=== PATIENT | male | born 1950 | race Caucasian/White ===

== ENCOUNTER 2021-02-26 17:58 | Emergency (ER) | payer MEDICARE, OTHER ==
[~2021-02-26] VITALS: Ht 203.2 cm; Wt 124.3 kg
[2021-02-26 19:02] LABS: HEMOGLOBIN 14.8 gm/dl (14.0-17.5); RED BLOOD COUNT 4.88 M/UL (4.20-5.50); WHITE BLOOD COUNT 3.2 K/UL (4.5-11.0)
[2021-02-26 19:22] LABS: BUN/CREATININE RATIO 17 (0-10)
[2021-02-27] MEDS ORDERED: DECADRON6 MG PO (00:59)
[2021-02-27] MEDS ORDERED: ASPIRIN EC81 MG PO (00:59)
[2021-02-27] MEDS ORDERED: ZITHROMAX250 MG PO (00:59)
== END 2021-02-27 01:15 | disposition home or self-care (01) ==
LOC: ER1 17:58
PROVIDERS: Physician Assistant
DX: Z23 Encounter for immunization (principal); U07.1 COVID-19; E11.9 Type 2 diabetes mellitus without complications; I10 Essential (primary) hypertension
CPT/HCPCS: 71045; 80053; 82550; 82553; 83615; 83874; 84484; 85025; 93005; 99284; M0243; U0002